=== PATIENT | female | born 1955 | race Caucasian/White ===

== ENCOUNTER 2017-04-14 13:30 | Outpatient (CLI) | payer BC ==
--- NOTE | 2017-04-14 16:40 | MMO ---
BILATERAL SCREENING MAMMOGRAM 04/14/17 Reference made to prior mammograms dating back to February 2011. Interpreted with the assistance of CAD. FINDINGS: There is heterogeneously dense breast parenchyma bilaterally which limits sensitivity of mammography . There are parenchymal calcifications and vascular calcifications bilaterally. No significant inter douglas detrimental change. No dominant mass or suspicious clustering of microcalcification. IMPRESSION: BI-RADS 2: Benign Finding(s) Routine annual screening mammography (for women over age 40). POS: [facility]
== END 2017-04-14 13:31 | disposition home or self-care (01) ==
LOC: SCSMAMMO 13:30
PROVIDERS: ATTEND Obstetrics & Gynecology
DX: Z12.31 Encounter for screening mammogram for malignant neoplasm of breast (principal)
CPT/HCPCS: 77067; G0202

== ENCOUNTER 2018-04-19 10:04 | Outpatient (CLI) | payer BC | END 2018-04-19 10:05 | disposition home or self-care (01) | LOC: BICMAMMO 10:04 | PROVIDERS: ATTEND Obstetrics & Gynecology | DX: Z12.31 Encounter for screening mammogram for malignant neoplasm of breast (principal); Z80.3 Family history of malignant neoplasm of breast | CPT/HCPCS: 77063; 77067 ==

== ENCOUNTER 2021-05-28 10:01 | Outpatient (CLI) | payer MEDICARE, BC | END 2021-05-28 10:02 | disposition home or self-care (01) | LOC: BICMAMMO 10:01 | PROVIDERS: ATTEND Student in an Organized Health Care Education/Training Program | DX: Z13.820 Encounter for screening for osteoporosis (principal); M85.851 Other specified disorders of bone density and structure, right thigh; M85.852 Other specified disorders of bone density and structure, left thigh | CPT/HCPCS: 77080 ==